=== PATIENT | female | born 1940 | race Caucasian/White ===

== ENCOUNTER 2022-01-28 11:28 | Day surgery (SDC) | payer MEDICARE, MEDICAID ==
[2022-01-21 15:16] LABS: BASOPHILS % (AUTO) 0.3 % (0-1); EOSINOPHILS # (AUTO) 0.2 X10'3 (0-0.9); EOSINOPHILS % (AUTO) 1.9 % (0-6); LYMPHOCYTES # (AUTO) 1.9 X10'3 (1.1-4.8); LYMPHOCYTES % (AUTO) 19.8 % (21-51); MEAN CORPUSCULAR HEMOGLOBIN 30.8 PG (27.0-31.0); MEAN CORPUSCULAR HGB CONC 33.1 g/dL (33.0-36.5); MEAN CORPUSCULAR VOLUME 93.1 FL (78-98); MEAN PLATELET VOLUME 8.1 FL (7.4-10.4); MONOCYTES # (AUTO) 0.7 X10'3 (0-0.9); MONOCYTES % (AUTO) 7.6 % (2-12); NEUTROPHILS # (AUTO) 6.7 X10'3 (1.8-7.7); NEUTROPHILS % (AUTO) 70.4 % (42-75); PRE OP HEMATOCRIT 41.7 % (35.0-45.0); PRE OP HEMOGLOBIN 13.8 g/dL (12.0-16.0); PRE OP PLATELET COUNT 198 X10'3 (140-440); RED BLOOD COUNT 4.49 X10'6 (4.20-5.60); RED CELL DISTRIBUTION WIDTH 13.9 % (11.5-14.5)
[2022-01-21 15:32] LABS: BLOOD UREA NITROGEN 22 MG/DL (7-18); BUN/CREATININE RATIO 17.5 (6.6-38.0); CHLORIDE 108 MMOL/L (99-107); CREATININE 1.26 MG/DL (0.40-0.90); PRE OP ANION GAP 2 (8-16); PRE OP GLUCOSE 129 MG/DL (70-104); PRE OP SODIUM 142 MMOL/L (135-145); TOTAL CARBON DIOXIDE 31.6 MMOL/L (24-32); eGFR 41 ML/MIN
[2022-01-21 15:33] LABS: ALBUMIN 3.5 G/DL (3.4-5.0); ALBUMIN/GLOBULIN RATIO 1.2 (1.1-1.5); ALKALINE PHOSPHATASE 105 IU/L (46-116); CALCIUM 8.4 MG/DL (8.5-10.1); PRE OP ALT 25 U/L (30-65); PRE OP AST 22 U/L (10-37); TOTAL PROTEIN 6.5 G/DL (6.4-8.2)
[~2022-01-28] VITALS: Ht 167.6 cm; Wt 90.7 kg
[2022-01-28] VITALS (26 sets, daily range): BP systolic 105–147; BP diastolic 52–83
[~2022-01-28 11:28] MED LIST: ASPI81TA52 PO; ATEN-27 PO; ATOR10TA87 PO; BISA-79 PO; CALC-1215 PO; CLON-528 PO; DILT120C55 PO; DOCUMENT DATE & TIME OF BETA-BLOCKER PO ONE; LANS30CA56 PO; LEVO75TA PO; SUSTANE EYE DROPS OP; ceFOXitin 2GM-NS 100mL ADDvant 100 ML IV ONE; famotidine 20mg tablet PO ONE; ringers solution, lacted 1,000 ML IV SCH
[2022-01-28 13:48] LABS: CLARITY,URINE CLEAR (Clear); COLOR,URINE YELLOW (Yellow); GLUCOSE, URINE NEGATIVE (Neg); KETONES,URINE NEGATIVE (Neg); LEUKOCYTE ESTERASE ,URINE NEGATIVE (Neg); NITRITES, URINE NEGATIVE (Neg); OCCULT BLOOD,URINE NEGATIVE (Neg); PH,URINE 7.5 (4.8-8.0); PROTEIN,URINE NEGATIVE (Neg); UROBILINOGEN,URINE 0.2 E.U/dL (0.2-1.0)
[2022-01-28 13:57] LABS: UA COLLECTION TYPE CLN CATCH MIDSTREAM
[2022-01-28] MEDS ORDERED: ondansetron/PF 4mg/2ml inj IV PRN (14:45)
[2022-01-28] MEDS ORDERED: ringers solution, lacted 1,000 ML IV SCH (14:45)
[2022-01-28] MEDS ORDERED: labetalol 20mg/4ml (5mg/ml) syringe IV PRN (14:45)
[2022-01-28] MEDS ORDERED: hydrALAZINE 20mg/ml inj. IV PRN (14:45)
[2022-01-28] MEDS ORDERED: morphine 4 MG/ML inj SYRINge IV PRN (14:45)
[2022-01-28] MEDS ORDERED: fentaNYL/PF 50MCG/1 ML 2ML syringe IV PRN ×2 (14:45)
[2022-01-28] MEDS ORDERED: morphine 2 MG/ML inj. syringe IV PRN (14:45)
[2022-01-28] MEDS ORDERED: vancomycin 1,000mg inj ONE (15:04)
[2022-01-28] MEDS ORDERED: ketorolac trometh. 30mg/ml inj. ONE (15:04)
[2022-01-28] MEDS ORDERED: epiNEPHrine 1 mg/ml inj ONE (15:04)
[2022-01-28] MEDS ORDERED: ROPIVAcaine 0.5% (5mg/ml) 30ml vial ONE (15:04)
[2022-01-28] MEDS ORDERED: cloNIDine hcl/PF 100mcg/ml inj ONE (15:04)
[2022-01-28] MEDS ORDERED: fentaNYL/PF 50MCG/1 ML 2ML syringe ONE (15:41)
[2022-01-28] MEDS ORDERED: etomidate 2mg/ml inj. ONE ×2 (15:42→15:44)
[2022-01-28] MEDS ORDERED: midazolam 1 mg/ML 2ml injection ONE (15:42)
[2022-01-28] MEDS ORDERED: desflurane 240ml liquid inh. IH ONE (15:44)
[2022-01-28] MEDS ORDERED: dexamethasone sod phosphate 4mg/ml inj. ONE ×2 (16:04)
[2022-01-28] MEDS ORDERED: ondansetron/PF 4mg/2ml inj ONE (16:05)
--- NOTE | 2022-01-28 16:30 | NUR ---
Received from OR via [facility], accompanied by Anesthesiologist DR. ROLAND and report given by Anesthesiolgist AND OR NURSE. PT ARRIVED DROWSY ON 10L OF 02 VIA MASK . NO INCISIONS OR DRESSINGS, 18 G IV TO LEFT AC. VSS. NO COMPLAINTS OF NAUSEA OR PAIN. WILL CONTINUE TO MONITOR. Addendum: 01/28/22 at 1718 by Zarina Simpson RN Amended: Links added.
[2022-01-28] MEDS: proCHLORperazine 10 MG/2 ml inj IV PRN ×2 (17:56→18:12)
[2022-01-28] MEDS ORDERED: proMETHazine 25mg tablet PO ONE ×2 (18:40→18:55)
[2022-01-28] MEDS ORDERED: scopolamine 1mg/72 hr patch TD ONE (18:45)
--- NOTE | 2022-01-28 20:07 | NUR ---
PT CONTINUES TO BE EXTREMELY NAUSEOUS. DR ROLAND HAD GIVEN ORDERS FOR PHENERGAN 12.5 MG, GIVEN. SISTER AT BEDSIDE. PT AMBULATED 10 FT WITH FWW. VSS. REPORT GIVEN TO XOCHILT ROWE, HE IS TAKING OVER CARE.
[2022-01-28] MEDS ORDERED: ondansetron 4mg rapidly disintigrating tab PO ONE (20:29)
--- NOTE | 2022-01-28 20:30 | NUR ---
PATIENT HAS MET ALL CRITERIA FOR DC HOME. DENIES PAIN. STOOD AND WALKED WITHOUT ISSUES. USED FWW FOR ADDED SAFETY. TAKEN OUT VIA WHEELCHAIR TO PERSONAL VEHICLE WHERE SHE WAS DRIVEN HOME BY HER SISTER. ALL DC INSTRUCTIONS COVERED WITH SISTER AND ALL INSTRUCTIONS UNDERSTOOD. VSS. SISTER WILL BE WITH PATIENT ALL NIGHT AND TOMORROW. Addendum: 01/28/22 at 2057 by Pablo Suggs RN, RN Amended: Links added.
== END 2022-01-28 20:30 | disposition home or self-care (01) ==
LOC: PAS 11:28
PROVIDERS: ATTEND Obstetrics & Gynecology Obstetrics
DX: R93.89 Abnormal findings on diagnostic imaging of other specified body structures (principal); Z79.899 Other long term (current) drug therapy; Z98.890 Other specified postprocedural states; Z98.51 Tubal ligation status; Z90.49 Acquired absence of other specified parts of digestive tract; G47.30 Sleep apnea, unspecified; Z88.8 Allergy status to other drugs, medicaments and biological substances; Z91.09 Other allergy status, other than to drugs and biological substances; K21.9 Gastro-esophageal reflux disease without esophagitis; Z87.440 Personal history of urinary (tract) infections
CPT/HCPCS: 36415; 58558; 80053; 81003; 82948; 85025; 86885; 86900; 86901; J0171; J0694; J0735; J0780; J1100; J1885; J2250; J2270; J2405; J2795; J3010; J3370; J3490; J7030; J7120; Q0169; Z7506; Z7512; 88305; A4355; A4615; A4618; A6258; A7000